=== PATIENT | female | born 1955 | race African-American/Black ===

== ENCOUNTER 2024-04-13 11:23 | Inpatient (IN) | payer OTHER ==
[~2024-04-13] VITALS: Ht 160 cm; Wt 104.2 kg
[~2024-04-13 11:23] MED LIST: ALBU8.5H3 IH; BENA-16 PO; FLUT12AE18 IH; GLIP5TAB15 PO; LITH300T4 PO; MONT-35 PO; RISP3TAB35 PO; TIOT185 IH; TRAZ-186 PO
[2024-04-13 11:42] LABS: COVID AG,FIA SOURCE NASAL SWAB
[2024-04-13] MEDS: IPRATROPIUM BROMIDE 0.5 MG/2.5 ML NEB SOLUTION NEB ONE (12:36)
[2024-04-13] MEDS: ALBUTEROL SULFATE 2.5 MG/0.5 ML NEB SOLUTION NEB ONE (12:36)
[2024-04-13 12:39] VITALS: PULSE 83; RESP 18; O2SAT 88
[2024-04-13 12:44] LABS: INFLUENZA TYPE A NEGATIVE FOR TYPE A (NEGATIVE); INFLUENZA TYPE B NEGATIVE FOR TYPE B (NEGATIVE); SARS-COV2 (COVID) ANTIGEN,FIA Negative (Negative)
[2024-04-13 12:54] VITALS: PULSE 87; RESP 18; O2SAT 96
[2024-04-13 12:56] LABS: APPEARANCE,URINE CLEAR (CLEAR); BILIRUBIN,URINE NEGATIVE (NEGATIVE); COLOR,URINE COLORLESS (YELLOW); GLUCOSE, URINE (UA) NEGATIVE (NEGATIVE); KETONES,URINE NEGATIVE (NEGATIVE); LEUKOCYTE ESTERASE ,URINE NEGATIVE (NEGATIVE); NITRATE,URINE NEGATIVE (NEGATIVE); OCCULT BLOOD,URINE NEGATIVE (NEGATIVE); PROTEIN,URINE NEGATIVE (NEGATIVE); SPECIFIC GRAVITIY, URINE 1.003 (1.003-1.030); UROBILINOGEN,URINE <=1.0 mg/dL (<=1.0)
[2024-04-13 13:15] LABS: BASOPHILS % (AUTO) 0.3 % (0.0-2.0); HEMATOCRIT 32.1 % (36-46); LYMPHOCYTES # (AUTO) 0.5 K/uL (1.0-4.8); LYMPHOCYTES % (AUTO) 9.6 % (22.0-44.0); MEAN CORPUSCULAR HEMOGLOBIN 26.3 pg (26.0-34.0); MEAN CORPUSCULAR HGB CONC 31.2 G/dL (31.0-37.0); MEAN CORPUSCULAR VOLUME 84 fL (80-100); MONOCYTES # (AUTO) 0.5 K/uL (0.1-1.0); MONOCYTES % (AUTO) 10.3 % (2.0-9.0); NEUTROPHILS # (AUTO) 3.9 K/uL (1.8-7.7); NEUTROPHILS % (AUTO) 78.8 % (40.0-70.0); PLATELET COUNT (AUTO) 389 K/uL (150-450); RED BLOOD CELL COUNT(AUTO) 3.82 MIL/uL (4.00-5.20); RED CELL DISTRIBUTION WIDTH 19.3 % (11.5-14.5); WHITE BLOOD COUNT (AUTO) 4.9 K/uL (4.5-11.0)
[2024-04-13 13:25] LABS: ANION GAP 0 mmol/L (8-16); CALCIUM, TOTAL 8.9 mg/dL (8.8-10.5); CARBON DIOXIDE 40 mmol/L (22-29); CHLORIDE 91 mmol/L (98-107); CREATININE 0.75 mg/dL (0.60-1.30); GLOMERULAR FILTR. RATE CALC > 60 mL/min (>60); GLUCOSE,RANDOM 106 mg/dL (70-110); POTASSIUM 4.5 mmol/L (3.5-5.1); SODIUM SERUM 131 mmol/L (136-145); UREA NITROGEN, BLOOD 8 mg/dL (7-18)
[2024-04-13 13:32] LABS: TROPONIN I-HIGH SENSITIVITY 8 ng/L (<51)
[2024-04-13 13:42] LABS: B-TYPE NATRIURETIC PEPTIDE 46 pg/mL (0-100)
[2024-04-13] MEDS: *CLINICAL-LEVOFLOXACIN IVPB DOSING CLINICAL ONE (14:10)
[2024-04-13] MEDS: FUROSEMIDE 20 MG TABLET PO SCH (14:56)
[2024-04-13] MEDS: MethylPREDNISolone SOD SUCC 125 MG/2 ML VIAL IVP ONE (14:57)
[2024-04-13] MEDS: LEVOFLOXACIN 750 MG/D5% WATER 150 ML IV ONE (14:57)
[2024-04-13] MEDS ORDERED: DEXTROSE 50%-WATER 25 GM/50 ML SYRINGE IVP PRN (15:45)
[2024-04-13] MEDS: HEPARIN SODIUM,PORCINE 5,000 UNITS/ML VIAL SQ SCH (16:57)
[2024-04-13] MEDS: MethylPREDNISolone SOD SUCC 125 MG/2 ML VIAL IVP SCH (19:14)
[2024-04-13 20:00] VITALS: BP 141/75; PULSE 98; RESP 18; TEMP 98.4; O2SAT 93
[2024-04-13] MEDS: DOCUSATE SODIUM 100 MG CAPSULE PO SCH (21:21)
[2024-04-13] MEDS: INSULIN LISPRO 100 UNITS/ML SQ PRN (21:23)
[2024-04-13] MEDS: ALBUTEROL SULFATE 2.5 MG/0.5 ML NEB SOLUTION NEB PRN (21:46)
[2024-04-13 22:16] VITALS: PULSE 101; RESP 22; O2SAT 97
[2024-04-13 22:18] VITALS: PULSE 101; RESP 22; O2SAT 98
[2024-04-13 23:52] VITALS: BP 131/81; PULSE 96; RESP 20; TEMP 97.5; O2SAT 95
[2024-04-14] VITALS (11 sets, daily range): BP systolic 126–145; BP diastolic 73–84; PULSE 79–112; RESP 18–24; TEMP 97.8–98.9; O2SAT 36–98
[2024-04-14 04:16] LABS: GLUCOMETER DEV NAME(LOC) 5N.1D; GLUCOSE,POINT OF CARE 305 MG/DL (70-110)
[2024-04-14 06:32] LABS: BASOPHILS % (AUTO) 0.5 % (0.0-2.0); EOSINOPHILS % (AUTO) 0.1 % (1.0-6.0); HEMATOCRIT 31.1 % (36-46); HEMOGLOBIN 9.6 g/dL (12.0-16.0); LYMPHOCYTES # (AUTO) 0.3 K/uL (1.0-4.8); LYMPHOCYTES % (AUTO) 6.3 % (22.0-44.0); MEAN CORPUSCULAR HEMOGLOBIN 26.3 pg (26.0-34.0); MEAN CORPUSCULAR HGB CONC 30.8 G/dL (31.0-37.0); MEAN CORPUSCULAR VOLUME 85 fL (80-100); MONOCYTES # (AUTO) 0.1 K/uL (0.1-1.0); MONOCYTES % (AUTO) 1.4 % (2.0-9.0); PLATELET COUNT (AUTO) 376 K/uL (150-450); RED BLOOD CELL COUNT(AUTO) 3.64 MIL/uL (4.00-5.20); RED CELL DISTRIBUTION WIDTH 18.7 % (11.5-14.5); WHITE BLOOD COUNT (AUTO) 4.4 K/uL (4.5-11.0)
[2024-04-14 06:59] LABS: ANION GAP 1 mmol/L (8-16); CALCIUM, TOTAL 8.7 mg/dL (8.8-10.5); CARBON DIOXIDE 40 mmol/L (22-29); CHLORIDE 92 mmol/L (98-107); CREATININE 0.73 mg/dL (0.60-1.30); GLOMERULAR FILTR. RATE CALC > 60 mL/min (>60); GLUCOSE,RANDOM 228 mg/dL (70-110); POTASSIUM 5.3 mmol/L (3.5-5.1); SODIUM SERUM 133 mmol/L (136-145); UREA NITROGEN, BLOOD 10 mg/dL (7-18)
[2024-04-14 07:45] LABS: NEUTROPHILS % (AUTO) 91.7 % (40.0-70.0)
[2024-04-14] MEDS: FAMOTIDINE 20 MG TABLET PO SCH (08:24)
[2024-04-14] MEDS ORDERED: 0.9% SODIUM CHLORIDE 5 ML NEB SOLUTION NEB ONE (12:04)
[2024-04-14] MEDS: ACETAMINOPHEN 325 MG TABLET PO PRN (12:49)
[2024-04-14 13:45] LABS: GLUCOMETER DEV NAME(LOC) 5N.2C; GLUCOSE,POINT OF CARE 258 MG/DL (70-110)
[2024-04-14 13:45] LABS: GLUCOMETER DEV NAME(LOC) 5N.2C; GLUCOSE,POINT OF CARE 136 MG/DL (70-110)
[2024-04-14] MEDS: LEVOFLOXACIN 750 MG/D5% WATER 150 ML IV SCH (14:07)
[2024-04-14 17:51] LABS: GLUCOMETER DEV NAME(LOC) 6S.1D; GLUCOSE,POINT OF CARE 203 MG/DL (70-110)
[2024-04-14 20:55] LABS: GLUCOMETER DEV NAME(LOC) 6N.2B; GLUCOSE,POINT OF CARE 221 MG/DL (70-110)
[2024-04-15] VITALS (9 sets, daily range): BP systolic 131–149; BP diastolic 69–110; PULSE 89–100; RESP 18–22; TEMP 98.7–98.9; O2SAT 94–100
[2024-04-15] MEDS: TraZODone HCL 50 MG TABLET PO ONE (01:52)
[2024-04-15 07:01] LABS: GLUCOMETER DEV NAME(LOC) 6N.2B; GLUCOSE,POINT OF CARE 220 MG/DL (70-110)
[2024-04-15] MEDS ORDERED: 0.9% SODIUM CHLORIDE 5 ML NEB SOLUTION NEB ONE (09:09)
[2024-04-15 11:56] LABS: GLUCOMETER DEV NAME(LOC) 6S.1D; GLUCOSE,POINT OF CARE 147 MG/DL (70-110)
[2024-04-15] MEDS ORDERED: DOXE25CA66 PO (13:26)
[2024-04-15] MEDS ORDERED: FLUT16SP NASAL (13:26)
[2024-04-15] MEDS ORDERED: CHL25 PO (13:26)
[2024-04-15] MEDS ORDERED: LACT10SO10 PO (13:26)
[2024-04-15] MEDS ORDERED: ALBU18HF12 IH (13:26)
[2024-04-15] MEDS ORDERED: CARI-493 PO (13:26)
[2024-04-15] MEDS ORDERED: ALBU2.5V39 NEB (13:26)
[2024-04-15] MEDS ORDERED: POTA-92 PO (13:41)
[2024-04-15] MEDS ORDERED: DIPH50CA35 PO (13:50)
[2024-04-15] MEDS ORDERED: POLY17PO47 PO (13:50)
[2024-04-15] MEDS ORDERED: SERT-158 PO (13:50)
[2024-04-15] MEDS ORDERED: SITA100 PO (13:50)
[2024-04-15] MEDS ORDERED: LATA5DRO OU (13:59)
[2024-04-15] MEDS ORDERED: DICY20TA95 PO (13:59)
[2024-04-15] MEDS ORDERED: ROSU10TA72 PO (13:59)
[2024-04-15] MEDS ORDERED: LITH300C3 PO ×2 (13:59)
[2024-04-15] MEDS ORDERED: BENA-18 PO (13:59)
[2024-04-15] MEDS: ALBUTEROL SULFATE 2.5 MG/0.5 ML NEB SOLUTION NEB ONE (17:33)
[2024-04-15] MEDS ORDERED: DiphenhydrAMINE HCL 50 MG CAPSULE PO PRN (20:00)
[2024-04-15] MEDS ORDERED: DICYCLOMINE HCL 20 MG TABLET PO PRN (20:00)
[2024-04-15] MEDS ORDERED: LACTULOSE 20 GM/30 ML SOLUTION UDCUP PO PRN (20:00)
[2024-04-15] MEDS ORDERED: ALBUTEROL SULFATE 2.5 MG/0.5 ML NEB SOLUTION NEB SCH (20:15)
[2024-04-15] MEDS ORDERED: BISACODYL 10 MG RECTAL RECTAL SUPPOSITORY PR PRN (20:15)
[2024-04-15] MEDS: IPRATROPIUM BROMIDE 0.5 MG/2.5 ML NEB SOLUTION NEB SCH (20:15)
[2024-04-15] MEDS ORDERED: OxyCODONE HCL/ACETAMINOPHEN 5-325 MG TABLET PO PRN (20:15)
[2024-04-15] MEDS ORDERED: MAGNESIUM HYDROXIDE SUSPENSION 30 ML UDCUP PO PRN (20:15)
[2024-04-15] MEDS ORDERED: ZOLPIDEM TARTRATE 5 MG TABLET PO PRN (20:15)
[2024-04-15] MEDS ORDERED: MORPHINE SULFATE 2 MG/ML SYRINGE IVP PRN (20:15)
[2024-04-15] MEDS ORDERED: ACETAMINOPHEN 325 MG TABLET PO PRN (20:15)
[2024-04-15] MEDS ORDERED: [UNRECOGNIZED DRUG - OTHER] OU SCH (21:00)
[2024-04-15] MEDS: LITHIUM CARBONATE 300 MG CAPSULE PO SCH (21:10)
[2024-04-15] MEDS: CARISOPRODOL 350 MG TABLET PO SCH (21:10)
[2024-04-15] MEDS: DOXEPIN HCL 25 MG CAPSULE PO SCH (21:10)
[2024-04-15] MEDS: TraZODone HCL 100 MG TABLET PO SCH (21:10)
[2024-04-15 21:15] LABS: GLUCOMETER DEV NAME(LOC) 6N.2B; GLUCOSE,POINT OF CARE 242 MG/DL (70-110)
[2024-04-15 21:20] LABS: GLUCOMETER DEV NAME(LOC) 6N.1B; GLUCOSE,POINT OF CARE 173 MG/DL (70-110)
[2024-04-15] MEDS: ALBUTEROL SULFATE 2.5 MG/0.5 ML NEB SOLUTION NEB SCH (22:44)
[2024-04-16] VITALS (11 sets, daily range): BP systolic 132–160; BP diastolic 63–95; PULSE 55–110; RESP 17–26; TEMP 98–98.5; O2SAT 85–99
[2024-04-16 07:31] LABS: GLUCOMETER DEV NAME(LOC) 6S.1D; GLUCOSE,POINT OF CARE 239 MG/DL (70-110)
[2024-04-16] MEDS: POLYETHYLENE GLYCOL 3350 17 GM PACKET PO SCH (08:30)
[2024-04-16] MEDS: POTASSIUM CHLORIDE 10 MEQ ER TABLET PO SCH (08:30)
[2024-04-16] MEDS: SERTRALINE HCL 50 MG TABLET PO SCH (08:31)
[2024-04-16] MEDS: DOCUSATE SODIUM 100 MG/10 ML LIQUID UDCUP PO SCH (08:32)
[2024-04-16] MEDS: SitaGLIPtin PHOSPHATE 100 MG TABLET PO SCH (08:32)
[2024-04-16] MEDS: LITHIUM CARBONATE 300 MG CAPSULE PO SCH (08:32)
[2024-04-16] MEDS: PANTOPRAZOLE SODIUM 40 MG/VIAL IVP SCH (08:32)
[2024-04-16] MEDS: ROSUVASTATIN CALCIUM 10 MG TABLET PO SCH (08:33)
[2024-04-16] MEDS: BENAZEPRIL HCL 20 MG TABLET PO SCH (08:33)
[2024-04-16] MEDS: CHLORTHALIDONE 25 MG TABLET PO SCH (08:33)
[2024-04-16] MEDS ORDERED: ALBU0.212 NEB (11:30)
[2024-04-16] MEDS ORDERED: BUDE10.32 IH (11:34)
[2024-04-16] MEDS ORDERED: DORZ10DR9 OU (11:34)
[2024-04-16 11:51] LABS: GLUCOMETER DEV NAME(LOC) 6N.1B; GLUCOSE,POINT OF CARE 232 MG/DL (70-110)
[2024-04-16 17:36] LABS: GLUCOMETER DEV NAME(LOC) 6N.1B; GLUCOSE,POINT OF CARE 140 MG/DL (70-110)
== END 2024-04-16 19:30 | disposition left against medical advice (07) | DRG 189 ==
LOC: EMS 11:32 → EDH 14:34 → 5S 18:48 → 6S 04-14 15:15
PROVIDERS: ADMIT Internal Medicine; ATTEND Internal Medicine
PROC: 05H933Z Insertion of Infusion Device into Right Brachial Vein, Percutaneous Approach (ICD-10-PCS; principal; 2024-04-14)
DX: J96.00 Acute respiratory failure, unspecified whether with hypoxia or hypercapnia (principal); J18.9 Pneumonia, unspecified organism; J44.0 Chronic obstructive pulmonary disease with (acute) lower respiratory infection; Z68.41 Body mass index [BMI] 40.0-44.9, adult; J44.1 Chronic obstructive pulmonary disease with (acute) exacerbation; E11.9 Type 2 diabetes mellitus without complications; F20.9 Schizophrenia, unspecified; E66.01 Morbid (severe) obesity due to excess calories; Z20.822 Contact with and (suspected) exposure to COVID-19; F31.9 Bipolar disorder, unspecified; K59.00 Constipation, unspecified; I11.9 Hypertensive heart disease without heart failure; Z83.3 Family history of diabetes mellitus; Z87.891 Personal history of nicotine dependence; Z88.0 Allergy status to penicillin; Z91.199 Patient's noncompliance with other medical treatment and regimen due to unspecified reason; Z91.013 Allergy to seafood; Z88.8 Allergy status to other drugs, medicaments and biological substances; Z53.29 Procedure and treatment not carried out because of patient's decision for other reasons
CPT/HCPCS: 36245; 36569; 71045; 76937; 80048; 81003; 82962; 83880; 84132; 84484; 85025; 87040; 87804; 93005; 93306; 93970; 94640; 99285; J1644; J1956; J2470; J2919; 36415-L1; 36415-TC; J7613